=== PATIENT | female | born 1995 | race Caucasian/White ===

== ENCOUNTER 2020-02-05 22:05 | Emergency (ER) | payer BC ==
--- NOTE | 2020-02-05 22:31 | EDM.PDOC ---
ED HPI GENERAL MEDICAL PROBLEM - General Chief Complaint: ENT Problem Stated Complaint: PAIN BEHIND RIGHT EAR Time Seen by Provider: 02/05/20 22:19 - History of Present Illness INITIAL COMMENTS - FREE TEXT/NARRATIVE: History of present illness: [] She has pain in the right side of the postauricular mastoid area. It started this morning. It is constant. She has no injury. She has no fever. She has no systemic signs of illness. She has no sore throat or cough. The patient not diabetic. Review of systems: As per history of present illness and below otherwise all systems reviewed and negative. Past medical history: As per history of present illness and as reviewed below otherwise noncontributory. Surgical history: As per history of present illness and as reviewed below otherwise noncontributory. Social history: No reported history of drug or alcohol abuse. Family history: As per history of present illness and as reviewed below otherwise noncontributory. Physical exam: Constitutional - well developed, well-nourished and in no acute distress HEENT -she has tenderness directly over the mastoid process on the right. There is no redness swelling fluctuance or inflammation. The TM looks normal on that side. Normocephalic, no evidence of trauma - external nose and mouth normal - no mass in neck and no JVD - mucosae moist EYES - full EOM, PERRL, no icterus - no evidence of inflammation, injection, or drainage Respiratory - no respiratory distress, equal bilateral expansion Musculoskeletal no gross deformity of long bones or joints - no tenderness, swelling or edema Neurologic - Alert and oriented times four - CN II-XII grossly intact - motor sensory and coordination symmetrically normal Psychiatric - appropriate mood and affect with normal thought content Hematologic - No petechiae or purpura - mucosa appropriate color and sclera not pale - normal nail bed color and refill Integument - no rash or evidence of trauma - normal turgor Diagnostics: [] Therapeutics: [] Impression: [] Plan: [] Definitive disposition and diagnosis as appropriate pending reevaluation and review of above. behind right ear Pain Score (Numeric/FACES): 2 - Related Data Allergies Allergy/AdvReac Type Severity Reaction Status Date / Time cephalexin [From Keflex] Allergy Hives Verified 02/05/20 22:19 Penicillins Allergy Hives Verified 02/05/20 22:19 Sulfa (Sulfonamide Allergy Other Verified 02/05/20 22:19 Antibiotics) sulfamethoxazole Allergy Other Verified 02/05/20 22:19 [From Bactrim] trimethoprim [From Bactrim] Allergy Other Verified 02/05/20 22:19 Home Meds: Home Meds Azithromycin [Zithromax] 250 mg PO DAILY #6 tab 02/05/20 [Rx] Past Medical History HEENT History: Reports: None Cardiovascular History: Reports: None Respiratory History: Reports: None Gastrointestinal History: Reports: None Genitourinary History: Reports: None FREELANCE PATTERNMAKER History: Reports: None Musculoskeletal History: Reports: None Neurological History: Reports: None Psychiatric History: Reports: None Endocrine/Metabolic History: Reports: None Insulin Pump Model and Fitting Room Inspector: None Hematologic History: Reports: None Immunologic History: Reports: None Oncologic (Cancer) History: Reports: None Dermatologic History: Reports: None - Infectious Disease History Infectious Disease History: Reports: None - Past Surgical History Head Surgeries/Procedures: Reports: None Social & Family History - Family History Family Medical History: Noncontributory - Tobacco Use Smoking Status *Q: Never Smoker - Caffeine Use Caffeine Use: Reports: None - Recreational Drug Use Recreational Drug Use: No ED ROS GENERAL - Review of Systems Review Of Systems: Comprehensive ROS is negative, except as noted in HPI. ED EXAM, GENERAL - Physical Exam Exam: See Below Free Text/Narrative:: My physical exam as in the HPI Course - Vital Signs Last Recorded V/S: Last Vital Signs Temp 97.3 F 02/05/20 22:15 Pulse 78 02/05/20 22:15 Resp 18 02/05/20 22:15 BP 121/89 02/05/20 22:15 Pulse Ox 96 02/05/20 22:15 Departure - Departure Time of Disposition: 22:31 Disposition: Home, Self-Care 01 Condition: Good Clinical Impression: Mastoid pain - Discharge Information Prescriptions: Azithromycin [Zithromax] 250 mg PO DAILY #6 tab Instructions: Pain Without a Known Cause Referrals: Leatha Lopez NP [Primary Care Provider] - Additional Instructions: Because you are breast-feeding and reacted poorly to cephalexin I think azithromycin would be the proper drug if you develop redness warmth tenderness in the area where you are tender or fever. Otherwise try warm compresses or heat to the area and [id number] anti-inflammatory medicine such as naproxen or ibuprofen. Prescription was sent in case she develops no signs but if it gets worse despite the prescription you should return or see your doctor. [facility] - Primary Care [address] [place] [id number] [facility] [address] [place] [address] The following information is given to patients seen in the emergency department who are being discharged to home. This information is to outline your options for follow-up care. We provide all patients seen in our emergency department with a follow-up referral. The need for follow-up, as well as the timing and circumstances, are variable depending upon the specifics of your emergency department visit. If you don't have a primary care physician on staff, we will provide you with a referral. We always advise you to contact your personal physician following an emergency department visit to inform them of the circumstance of the visit and for follow-up with them and/or the need for any referrals to a consulting specialist. The emergency department will also refer you to a specialist when appropriate. This referral assures that you have the opportunity for follow-up care with a specialist. All of these measure are taken in an effort to provide you with optimal care, which includes your follow-up. Under all circumstances we always encourage you to contact your private physician who remains a resource for coordinating your care. When calling for follow-up care, please make the office aware that this follow-up is from your recent emergency room visit. If for any reason you are refused follow-up, please contact the [facility] Emergency Department at and asked to speak to the emergency department charge nurse. Sepsis Event Note (ED) - Evaluation Sepsis Screening Result: No Definite Risk - Focused Exam Vital Signs: Vital Signs Temp Pulse Resp BP Pulse Ox 02/05/20 22:15 97.3 F 78 18 121/89 96
== END 2020-02-05 22:40 | disposition home or self-care (01) ==
LOC: MW.ED 22:05
DX: H92.01 Otalgia, right ear (principal); Z88.1 Allergy status to other antibiotic agents; Z88.2 Allergy status to sulfonamides; Z88.0 Allergy status to penicillin
CPT/HCPCS: 99282

== ENCOUNTER 2020-04-24 21:38 | Emergency (ER) | payer BC ==
--- NOTE | 2020-04-24 22:28 | EDM.PDOC ---
ED HPI GENERAL MEDICAL PROBLEM - General Chief Complaint: ENT Problem Stated Complaint: EAR INFECTION Time Seen by Provider: 04/24/20 22:15 - History of Present Illness INITIAL COMMENTS - FREE TEXT/NARRATIVE: HISTORY AND PHYSICAL: History of present illness: Is a 24-year-old female who presents ER today secondary to pain to both ears for approximately 2 and half weeks. Patient reports that she saw her primary care physician and was started on a course of Zithromax and ciprofloxacin drops but reports that she still has having discomfort in her ears. Patient reports that she saw her doctor yesterday and was given a shot of steroids to see if that might help. Patient presents ER today secondary to pain and discomfort to her ears and feeling like its full and constantly having to pop her ear drum. Patient has any recent fevers, shakes, chills, nausea, vomiting, diarrhea, dysuria, frequency, urgency, chest pain, shortness of breath. Patient reports no recent plane rides or increased trauma to her ear. Patient reports she does not use any Q-tips inside her ear. Review of systems: As per history of present illness and below otherwise all systems reviewed and negative. Past medical history: As per history of present illness and as reviewed below otherwise noncontributory. Surgical history: As per history of present illness and as reviewed below otherwise noncontributory. Social history: No reported history of drug or alcohol abuse. Family history: As per history of present illness and as reviewed below otherwise noncontributory. Physical exam: Constitutional: Patient is oriented to person, place, and time. Appears well- developed and well-nourished. No distress. HEENT: Moist mucous membranes Head: Normocephalic and atraumatic Eyes: Right eye exhibits no discharge. Left eye exhibits no discharge. No scleral icterus Neck: Normal range of motion. No tracheal deviation present. Cardiovascular: Normal rate and regular rhythm. Pulmonary: Effort normal, no respiratory distress. Abdominal: No distention Musculoskeletal: Normal range of motion Neurologic: Alert and oriented to person, place and time. Skin: [place], warm and dry. Psychiatric: Normal mood and affect. Behavior is normal. Judgment and thought content normal. Nursing note and vital signs have been reviewed Patient's ER physical exam is significant for pristine appearing bilateral ear canals and eardrum. There is absolutely no evidence of infection that I am able to elicit. Patient has no mastoid bone tenderness. Patient has no drainage, erythema, erythema of the tympanic membrane. Patient has no tenderness to her teeth or gums. Patient has no pain at the TMJs bilaterally. Assessment and plan: This is a 24-year-old female presents ER today complaining of bilateral ear pain for 2 and half weeks. Patient exam is completely normal. No evidence of infection. I have encouraged patient to utilize ibuprofen and acetaminophen and to follow-up with her doctor for reevaluation of the pain persist. At this time I do not see anything that I can treat here in the ED. Reassessment at the time of disposition demonstrates that the patient is in no acute distress. The patient has remained stable throughout the entire ED visit and is without objective evidence for acute process requiring urgent intervention or hospitalization. The patient is stable for discharge, counseling is provided as documented above, discussed symptomatic treatment and specific conditions for return. I have spoken with the patient/caregiver and discussed todays findings, in addition to providing specific details for the plan of care. Questions are answered and there is agreement with the plan. Definitive disposition and diagnosis as appropriate pending reevaluation and review of above. bilat ears Pain Score (Numeric/FACES): 5 - Related Data Allergies Allergy/AdvReac Type Severity Reaction Status Date / Time cephalexin [From Keflex] Allergy Hives Verified 04/24/20 21:55 Penicillins Allergy Hives Verified 04/24/20 21:55 Sulfa (Sulfonamide Allergy Other Verified 04/24/20 21:55 Antibiotics) sulfamethoxazole Allergy Other Verified 04/24/20 21:55 [From Bactrim] trimethoprim [From Bactrim] Allergy Other Verified 04/24/20 21:55 Home Meds: Home Meds Azithromycin [Zithromax] 250 mg PO DAILY #6 tab 02/05/20 [Rx] Ciprofloxacin HCl/Dexameth [Ciproflox-Dexameth Otic Susp] 3 drop EARBOTH BID 04/24/20 [History] Past Medical History HEENT History: Reports: None Other HEENT History: wisdom teeth Cardiovascular History: Reports: None Respiratory History: Reports: None Gastrointestinal History: Reports: None Genitourinary History: Reports: None FOOD SAFETY AUDITOR History: Reports: None Musculoskeletal History: Reports: None Neurological History: Reports: None Psychiatric History: Reports: None Endocrine/Metabolic History: Reports: None Insulin Pump Model and Farmworker Diversified Crops: None Hematologic History: Reports: None Immunologic History: Reports: None Oncologic (Cancer) History: Reports: None Dermatologic History: Reports: None - Infectious Disease History Infectious Disease History: Reports: None - Past Surgical History Head Surgeries/Procedures: Reports: None Social & Family History - Family History Family Medical History: No Pertinent Family History - Caffeine Use Caffeine Use: Reports: None - Recreational Drug Use Recreational Drug Use: No ED ROS GENERAL - Review of Systems Review Of Systems: See Below ED EXAM, GENERAL - Physical Exam Exam: See Below Course - Vital Signs Last Recorded V/S: Last Vital Signs Temp 98.9 F 04/24/20 21:58 Pulse 109 H 04/24/20 21:58 Resp 18 04/24/20 21:58 BP 129/93 H 04/24/20 21:58 Pulse Ox 98 04/24/20 21:58 Departure - Departure Time of Disposition: 22:27 Disposition: Home, Self-Care 01 Condition: Good Clinical Impression: Otalgia, bilateral - Discharge Information Instructions: Earache, Adult Referrals: Leatha Lopez NP [Primary Care Provider] - Additional Instructions: Your seen and evaluated in the ER today secondary to pain in both ears. Your evaluation today is unremarkable with no evidence of infection in either your external ear canal or middle ear canal. Please take ibuprofen and Tylenol to as sist you with the pain. Please make an appointment to follow-up with your doctor this week for reevaluation. The following information is given to patients seen in the emergency department who are being discharged to home. This information is to outline your options for follow-up care. We provide all patients seen in our emergency department with a follow-up referral. The need for follow-up, as well as the timing and circumstances, are variable depending upon the specifics of your emergency department visit. If you don't have a primary care physician on staff, we will provide you with a referral. We always advise you to contact your personal physician following an emergency department visit to inform them of the circumstance of the visit and for follow-up with them and/or the need for any referrals to a consulting specialist. The emergency department will also refer you to a specialist when appropriate. This referral assures that you have the opportunity for follow-up care with a specialist. All of these measure are taken in an effort to provide you with optimal care, which includes your follow-up. Under all circumstances we always encourage you to contact your private physic jaiden who remains a resource for coordinating your care. When calling for follow- up care, please make the office aware that this follow-up is from your recent emergency room visit. If for any reason you are refused follow-up, please contact the [facility] Emergency Department at and asked to speak to the emergency department charge nurse. [facility] - Primary Care [address] [place] [address] [id number] [address] [address] Sepsis Event Note (ED) - Evaluation Sepsis Screening Result: No Definite Risk - Focused Exam Vital Signs: Vital Signs Temp Pulse Resp BP Pulse Ox 04/24/20 21:58 98.9 F 109 H 18 129/93 H 98
== END 2020-04-24 22:35 | disposition home or self-care (01) ==
LOC: MW.ED 21:38
DX: H92.03 Otalgia, bilateral (principal); Z88.1 Allergy status to other antibiotic agents; Z88.0 Allergy status to penicillin; Z88.2 Allergy status to sulfonamides
CPT/HCPCS: 99282

== ENCOUNTER 2020-06-14 21:52 | Emergency (ER) | payer BC ==
--- NOTE | 2020-06-14 22:39 | EDM.PDOC ---
ED HPI GENERAL MEDICAL PROBLEM - General Chief Complaint: Gastrointestinal Problem Stated Complaint: STOMACH PAIN Time Seen by Provider: 06/14/20 22:30 Source of Information: Reports: Patient History Limitations: Reports: No Limitations - History of Present Illness INITIAL COMMENTS - FREE TEXT/NARRATIVE: Is a 24-year-old female who presents today for black-colored stool. Patient that she has been treated for C. difficile currently and is on her 11-day of vancomycin. Patient that she had a bowel move today and was very dark in color and became concerned. Patient denies any fatigue weakness nausea vomiting abdominal pain. Patient has not had GI bleeding before and patents had colonoscopy that showed no polyps and essentially negative. - Related Data Allergies Allergy/AdvReac Type Severity Reaction Status Date / Time cephalexin [From Keflex] Allergy Hives Verified 06/14/20 23:00 Penicillins Allergy Hives Verified 06/14/20 23:00 Sulfa (Sulfonamide Allergy Other Verified 06/14/20 23:00 Antibiotics) sulfamethoxazole Allergy Other Verified 06/14/20 23:00 [From Bactrim] trimethoprim [From Bactrim] Allergy Other Verified 06/14/20 23:00 Home Meds: Home Meds Vancomycin [Vancocin 125 MG Capsule] 125 mg PO Q6HR 06/14/20 [History] Past Medical History HEENT History: Reports: None Other HEENT History: wisdom teeth Cardiovascular History: Reports: None Respiratory History: Reports: None Gastrointestinal History: Reports: None Genitourinary History: Reports: None PRESSER FIRST History: Reports: None Musculoskeletal History: Reports: None Neurological History: Reports: None Psychiatric History: Reports: None Endocrine/Metabolic History: Reports: None Insulin Pump Model and Radio Frequency Design Engineer: None Hematologic History: Reports: None Immunologic History: Reports: None Oncologic (Cancer) History: Reports: None Dermatologic History: Reports: None - Infectious Disease History Infectious Disease History: Reports: None - Past Surgical History Head Surgeries/Procedures: Reports: None Social & Family History - Family History Family Medical History: No Pertinent Family History - Caffeine Use Caffeine Use: Reports: None ED ROS GENERAL - Review of Systems Review Of Systems: Comprehensive ROS is negative, except as noted in HPI. ED EXAM, GENERAL - Physical Exam Exam: See Below Exam Limited By: No Limitations General Appearance: Alert, WD/WN, No Apparent Distress Respiratory/Chest: No Respiratory Distress, Lungs Clear, Normal Breath Sounds Cardiovascular: Normal Peripheral Pulses, Regular Rate, Rhythm GI/Abdominal: Normal Bowel Sounds, Soft, Non-Tender Extremities: Normal Inspection, Normal Range of Motion Neurological: Alert, Oriented Course - Vital Signs Last Recorded V/S: Last Vital Signs Temp 97.5 F 06/14/20 22:05 Pulse 112 H 06/14/20 22:05 Resp 18 06/14/20 22:05 BP 143/98 H 06/14/20 22:05 Pulse Ox 96 06/14/20 22:05 - Orders/Labs/Meds Orders: Active Orders 24 hr Category Date Time Status Guaiac [OCCULT BLOOD DIAGNOSTIC] [OP] Stat Lab 06/14/20 22:37 Ordered Labs: Laboratory Tests 06/14/20 06/14/20 06/14/20 Range/Units 22:53 22:53 22:53 WBC 8.66 (4.0-11.0) K/uL RBC 4.54 (4.30-5.90) M/uL Hgb 13.7 (12.0-16.0) g/dL Hct 41.2 (36.0-46.0) % MCV 90.7 (80.0-98.0) fL MCH 30.2 (27.0-32.0) pg MCHC 33.3 (31.0-37.0) g/dL RDW Std Deviation 41.8 (28.0-62.0) fl RDW Coeff of Camilla 13 (11.0-15.0) % Plt Count 356 (150-400) K/uL MPV 9.30 (7.40-12.00) fL Neut % (Auto) 55.7 (48.0-80.0) % Lymph % (Auto) 31.9 (16.0-40.0) % [place] % (Auto) 9.1 (0.0-15.0) % Eos % (Auto) 2.7 (0.0-7.0) % Baso % (Auto) 0.6 (0.0-1.5) % Neut # (Auto) 4.8 (1.4-5.7) K/uL Lymph # (Auto) 2.8 H (0.6-2.4) K/uL [place] # (Auto) 0.8 (0.0-0.8) K/uL Eos # (Auto) 0.2 (0.0-0.7) K/uL Baso # (Auto) 0.1 (0.0-0.1) K/uL Nucleated RBC % 0.0 /100WBC Nucleated RBCs # 0 K/uL INR 0.97 APTT 22.7 (18.6-31.3) SEC Sodium 140 (136-145) mmol/L Potassium 3.8 (3.5-5.1) mmol/L Chloride 103 (98-107) mmol/L Carbon Dioxide 25.7 (21.0-32.0) mmol/L BUN 13 (7.0-18.0) mg/dL Creatinine 0.8 (0.6-1.0) mg/dL Est Cr Clr Drug Dosing 77.22 mL/min Estimated GFR (MDRD) > 60.0 ml/min Glucose 110 H (74-106) mg/dL Calcium 9.5 (8.5-10.1) mg/dL Total Bilirubin 0.2 (0.2-1.0) mg/dL AST 19 (15-37) IU/L ALT 19 (14-63) IU/L Alkaline Phosphatase 70 (46-116) U/L Total Protein 8.4 H (6.4-8.2) g/dL Albumin 4.1 (3.4-5.0) g/dL Globulin 4.3 H (2.6-4.0) g/dL Albumin/Globulin Ratio 1.0 (0.9-1.6) - Re-Assessments/Exams Free Text/Narrative Re-Assessment/Exam: 06/14/20 23:48 And hemoglobin is stable. Patient has some dark-colored stool that was guaiac positive. Patient vital signs also stable. Patient has C. difficile and second vague likely the source of the dark-colored stool. Since patient hemoglobin is stable and her vital signs been stable will have patient follow-up with general surgery tomorrow morning. Departure - Departure Time of Disposition: 23:48 Disposition: Home, Self-Care 01 Condition: Good Clinical Impression: Black tarry stools - Discharge Information *PRESCRIPTION DRUG MONITORING PROGRAM REVIEWED*: Not Applicable *COPY OF PRESCRIPTION DRUG MONITORING REPORT IN PATIENT LATRICE: Not Applicable Instructions: Gastrointestinal Bleeding, [id number] Referrals: Leatha Lopez NP [Primary Care Provider] - Forms: ED Department Discharge Additional Instructions: The following information is given to patients seen in the emergency department who are being discharged to home. This information is to outline your options for follow-up care. We provide all patients seen in our emergency department with a follow-up referral. The need for follow-up, as well as the timing and circumstances, are variable depending upon the specifics of your emergency department visit. If you don't have a primary care physician on staff, we will provide you with a referral. We always advise you to contact your personal physician following an emergency department visit to inform them of the circumstance of the visit and for follow-up with them and/or the need for any referrals to a consulting specialist. The emergency department will also refer you to a specialist when appropriate. This referral assures that you have the opportunity for follow-up care with a specialist. All of these measure are taken in an effort to provide you with optimal care, which includes your follow-up. Under all circumstances we always encourage you to contact your private physician who remains a resource for coordinating your care. When calling for follow-up care, please make the office aware that this follow-up is from your recent emergency room visit. If for any reason you are refused follow-up, please contact the [facility] Emergency Department at and asked to speak to the emergency department charge nurse. Please follow up with your primary care physician. If you do not have a primary care physician, see below: [facility] - General Surgery Professional [address], [address] [place] [address] Please follow-up above with general surgery this week. Your stool is dark in color could be related to a possible bleed in your bowels if you start having plate red color stool becoming weak tired or pale please return to the ED immediately otherwise continue to follow-up with general surgery. Sepsis Event Note (ED) - Focused Exam Vital Signs: Vital Signs Temp Pulse Resp BP Pulse Ox 06/14/20 22:05 97.5 F 112 H 18 143/98 H 96 - My Orders Last 24 Hours: My Active Orders 06/14/20 22:37 Guaiac [OCCULT BLOOD DIAGNOSTIC] [OP] Stat - Assessment/Plan Last 24 Hours: My Active Orders 06/14/20 22:37 Guaiac [OCCULT BLOOD DIAGNOSTIC] [OP] Stat Assessment:: Patient is a 24-year-old female presents today for black-colored stool. Will get CBC and Guaiac to make sure patient not having a GI bleed.
[2020-06-14 23:20] LABS: BLOOD UREA NITROGEN,BUN 13 mg/dL (7.0-18.0); CARBON DIOXIDE,CO2 25.7 mmol/L (21.0-32.0); CHLORIDE,CL 103 mmol/L (98-107); GLUCOSE RANDOM 110 mg/dL (74-106); POTASSIUM,K 3.8 mmol/L (3.5-5.1); SODIUM,NA 140 mmol/L (136-145)
== END 2020-06-15 00:04 | disposition home or self-care (01) ==
LOC: MW.ED 21:52
DX: R19.5 Other fecal abnormalities (principal); Z88.1 Allergy status to other antibiotic agents; Z88.0 Allergy status to penicillin; Z88.2 Allergy status to sulfonamides
CPT/HCPCS: 36415; 80053; 85025; 85610; 85730; 99282; 99283

== ENCOUNTER 2020-06-30 20:17 | Emergency (ER) | payer BC ==
--- NOTE | 2020-06-30 20:52 | EDM.PDOC ---
ED HPI GENERAL MEDICAL PROBLEM - General Chief Complaint: General Stated Complaint: BOTH LEG AND HANDS SWOLLEN Time Seen by Provider: 06/30/20 20:29 Source of Information: Reports: Patient History Limitations: Reports: No Limitations - History of Present Illness INITIAL COMMENTS - FREE TEXT/NARRATIVE: HISTORY AND PHYSICAL: History of present illness: Patient is a 24-year-old female who presents to the emergency room with complaints of distal extremity edema. She states a few days ago she noticed that her hands and feet were swollen and initially she thought it was due to a salty pretzels she had eaten. She states she has noticed intermittent swelling of her distal extremities in the past but typically resolves on its own. She is also concerned as she has clammy/"sweaty" palms bilaterally. She recently drove back to [place] from [place], has been sitting for long periods of time. Patient denies any fever, chills, headache, change in vision, syncope or near syncope. Denies any chest pain, back pain, shortness of breath or cough. Denies any abdominal pain, nausea, vomiting, diarrhea, constipation or dysuria. Has not noted any blood in urine or stool. Patient has been eating and drinking appropriately. Review of systems: As per history of present illness and below otherwise all systems reviewed and negative. Past medical history: As per history of present illness and as reviewed below otherwise noncontributory. Surgical history: As per history of present illness and as reviewed below otherwise noncontributory. Social history: See social history for further information Family history: As per history of present illness and as reviewed below otherwise noncontributory. Physical exam: General: Well developed and well nourished 24-year-old female. Alert and orientated x 3. Nontoxic in appearance and in no acute distress. Vital signs are stable and have been reviewed by me. Nursing notes were reviewed. HEENT: Atraumatic, normocephalic, pupils equal and reactive bilaterally, negative for conjunctival pallor or scleral icterus, mucous membranes moist, TMs normal bilaterally, throat clear, neck supple, nontender, trachea midline. No drooling or trismus noted. No meningeal signs. No hot potato voice noted. Lungs: Clear to auscultation bilaterally. No wheezes, rales, or rhonchi. Chest nontender. Normal work of breathing, no accessory muscles used. Heart: S1S2, regular rate and rhythm without overt murmur, gallops, or rubs. No JVD. No peripheral edema Abdomen: Soft, nondistended, nontender. Normoactive bowel sounds. Negative for masses or costovertebral tenderness. Skin: Intact, warm, dry. No lesions or rashes noted. Hematologic: No petechiae or purpra. Mucosa appropriate color and normal nail bed color and refill. Extremities: Atraumatic, moves all extremities per self without difficulty or deficits, negative for cords or calf pain. Trace edema to bilateral ankles/feet. Strong pedal and pretibial pulses. Neurovascular unremarkable. Neuro: Awake, alert, oriented. Cranial nerves II through XII unremarkable. Cerebellum unremarkable. Motor and sensory unremarkable throughout. Exam nonfocal. Psychiatric: Mood and affect are appropriate. Normal thought process. Answering questions appropriately. Notes: *This patient was seen and evaluated during the 2019 SARS-CoV-2 novel coronavirus pandemic period. Community viral transmission is ongoing at time of this encounter and the emergency department is operating under pandemic response procedures. Patient states she stopped taking her control a month or 2 ago due to other medications she had been taking (states she was just taking too many). With her pulse being slightly elevated and recent long travel I will do basic lab, D.dimer (low Wells Score) work along with a urine . Chest x-ray is unremarkable. EKG shows no significant findings, no concern for STEMI. Labs are unremarkable. VSS. I have talked with the patient about today's findings, in addition to providing specific details for plan of care. Reassessment at the time of disposition demonstrates that the patient is in no acute distress. The patient is stable for discharge, counseling was provided and we discussed in great detail signs and symptoms that would prompt them to return to the Emergency Department. Medication, follow up and supportive care measures were reviewed and discussed. Voices understanding and is agreeable to plan of care. Denies any further questions or concerns at this time. Diagnostics: CBC, CMP, UA, HCGU, CXR, D.Dimer Therapeutics: None Prescription: None Impression: Edema, mild Plan: 1. Your work-up today (labs, EKG, chest x-ray) are all within normal limits. Increase your water intake and decrease sodium (processed foods, add salt, etc..) 2. You can alternate Tylenol and ibuprofen as needed for pain and fever management. 3. We encourage you to follow up with your primary care provider and/or recommended specialist in the next few days for re-evaluation and further care/management. 4. If your symptoms should worsen, new symptoms develop or any of the signs and symptoms we discussed should arise please return to the emergency room or call 911 (if needed). Definitive disposition and diagnosis as appropriate pending reevaluation and review of above. - Related Data Allergies Allergy/AdvReac Type Severity Reaction Status Date / Time cephalexin [From Keflex] Allergy Hives Verified 06/30/20 20:24 Penicillins Allergy Hives Verified 06/30/20 20:24 Sulfa (Sulfonamide Allergy Tachycardia Verified 06/30/20 20:24 Antibiotics) sulfamethoxazole Allergy Other Verified 06/30/20 20:24 [From Bactrim] trimethoprim [From Bactrim] Allergy Other Verified 06/30/20 20:24 Home Meds: Home Meds Vancomycin [Vancocin 125 MG Capsule] 125 mg PO DAILY 06/14/20 [History] Past Medical History HEENT History: Reports: None Other HEENT History: wisdom teeth, ear infection Cardiovascular History: Reports: None Respiratory History: Reports: None Gastrointestinal History: Reports: None Other Gastrointestinal History: c-diff Genitourinary History: Reports: None PRESS READER History: Reports: Musculoskeletal History: Reports: None Neurological History: Reports: None Psychiatric History: Reports: None Endocrine/Metabolic History: Reports: None 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 ED EXAM, GENERAL - Physical Exam Exam: See Below (See dictation) Course - Vital Signs Last Recorded V/S: Last Vital Signs Temp 98.0 F 06/30/20 20:25 Pulse 116 H 06/30/20 20:25 Resp 18 02/19/21 20:25 BP 148/83 H 06/30/20 20:25 Pulse Ox 100 06/30/20 20:25 - Orders/Labs/Meds Orders: Active Orders 24 hr Category Date Time Status EKG Documentation Completion [RC] STAT Care 06/30/20 20:36 Active Labs: Laboratory Tests 06/30/20 06/30/20 06/30/20 Range/Units 20:46 20:46 21:05 WBC 9.73 (4.0-11.0) K/uL RBC 4.52 (4.30-5.90) M/uL Hgb 13.8 (12.0-16.0) g/dL Hct 40.6 (36.0-46.0) % MCV 89.8 (80.0-98.0) fL MCH 30.5 (27.0-32.0) pg MCHC 34.0 (31.0-37.0) g/dL RDW Std Deviation 41.7 (28.0-62.0) fl RDW Coeff of Camilla 13 (11.0-15.0) % Plt Count 356 (150-400) K/uL MPV 9.60 (7.40-12.00) fL Neut % (Auto) 52.7 (48.0-80.0) % Lymph % (Auto) 34.4 (16.0-40.0) % [place] % (Auto) 7.8 (0.0-15.0) % Eos % (Auto) 4.7 (0.0-7.0) % Baso % (Auto) 0.4 (0.0-1.5) % Neut # (Auto) 5.1 (1.4-5.7) K/uL Lymph # (Auto) 3.4 H (0.6-2.4) K/uL [place] # (Auto) 0.8 (0.0-0.8) K/uL Eos # (Auto) 0.5 (0.0-0.7) K/uL Baso # (Auto) 0.0 (0.0-0.1) K/uL Nucleated RBC % 0.0 /100WBC Nucleated RBCs # 0 K/uL D-Dimer, Quantitative (0.0-0.50) mg/L FEU Sodium (136-145) mmol/L Potassium (3.5-5.1) mmol/L Chloride (98-107) mmol/L Carbon Dioxide (21.0-32.0) mmol/L BUN (7.0-18.0) mg/dL Creatinine (0.6-1.0) mg/dL Est Cr Clr Drug Dosing mL/min Estimated GFR (MDRD) ml/min Glucose (74-106) mg/dL Calcium (8.5-10.1) mg/dL Total Bilirubin (0.2-1.0) mg/dL AST (15-37) IU/L ALT (14-63) IU/L Alkaline Phosphatase (46-116) U/L Total Protein (6.4-8.2) g/dL Albumin (3.4-5.0) g/dL Globulin (2.6-4.0) g/dL Albumin/Globulin Ratio (0.9-1.6) Urine Color YELLOW Urine Appearance CLEAR Urine pH 6.0 (5.0-8.0) Ur Specific [place] 1.010 (1.001-1.035) Urine Protein NEGATIVE (NEGATIVE) mg/dL Urine Glucose (UA) NEGATIVE (NEGATIVE) mg/dL Urine Ketones NEGATIVE (NEGATIVE) mg/dL Urine Occult Blood NEGATIVE (NEGATIVE) Urine Nitrite NEGATIVE (NEGATIVE) Urine Bilirubin NEGATIVE (NEGATIVE) Urine Urobilinogen 0.2 (<2.0) EU/dL Ur Leukocyte Esterase NEGATIVE (NEGATIVE) Urine HCG, Qual NEGATIVE (NEGATIVE) 06/30/20 06/30/20 Range/Units 21:05 21:05 WBC (4.0-11.0) K/uL RBC (4.30-5.90) M/uL Hgb (12.0-16.0) g/dL Hct (36.0-46.0) % MCV (80.0-98.0) fL MCH (27.0-32.0) pg MCHC (31.0-37.0) g/dL RDW Std Deviation (28.0-62.0) fl RDW Coeff of Camilla (11.0-15.0) % Plt Count (150-400) K/uL MPV (7.40-12.00) fL Neut % (Auto) (48.0-80.0) % Lymph % (Auto) (16.0-40.0) % [place] % (Auto) (0.0-15.0) % Eos % (Auto) (0.0-7.0) % Baso % (Auto) (0.0-1.5) % Neut # (Auto) (1.4-5.7) K/uL Lymph # (Auto) (0.6-2.4) K/uL [place] # (Auto) (0.0-0.8) K/uL Eos # (Auto) (0.0-0.7) K/uL Baso # (Auto) (0.0-0.1) K/uL Nucleated RBC % /100WBC Nucleated RBCs # K/uL D-Dimer, Quantitative 0.41 (0.0-0.50) mg/L FEU Sodium 138 (136-145) mmol/L Potassium 3.9 (3.5-5.1) mmol/L Chloride 100 (98-107) mmol/L Carbon Dioxide 26.3 (21.0-32.0) mmol/L BUN 12 (7.0-18.0) mg/dL Creatinine 0.7 (0.6-1.0) mg/dL Est Cr Clr Drug Dosing 105.57 mL/min Estimated GFR (MDRD) > 60.0 ml/min Glucose 104 (74-106) mg/dL Calcium 9.1 (8.5-10.1) mg/dL Total Bilirubin 0.2 (0.2-1.0) mg/dL AST 22 (15-37) IU/L ALT 34 (14-63) IU/L Alkaline Phosphatase 69 (46-116) U/L Total Protein 8.2 (6.4-8.2) g/dL Albumin 4.0 (3.4-5.0) g/dL Globulin 4.2 H (2.6-4.0) g/dL Albumin/Globulin Ratio 1.0 (0.9-1.6) Urine Color Urine Appearance Urine pH (5.0-8.0) Ur Specific [place] (1.001-1.035) Urine Protein (NEGATIVE) mg/dL Urine Glucose (UA) (NEGATIVE) mg/dL Urine Ketones (NEGATIVE) mg/dL Urine Occult Blood (NEGATIVE) Urine Nitrite (NEGATIVE) Urine Bilirubin (NEGATIVE) Urine Urobilinogen (<2.0) EU/dL Ur Leukocyte Esterase (NEGATIVE) Urine HCG, Qual (NEGATIVE) Departure - Departure Time of Disposition: 21:35 Disposition: Home, Self-Care 01 Clinical Impression: Mild ankle edema - Discharge Information Instructions: Edema, [id number] Referrals: Leatha Lopez NP [Primary Care Provider] - Forms: ED Department Discharge Additional Instructions: The following information is given to patients seen in the emergency department who are being discharged to home. This information is to outline your options for follow-up care. We provide all patients seen in our emergency department with a follow-up referral. The need for follow-up, as well as the timing and circumstances, are variable depending upon the specifics of your emergency department visit. If you don't have a primary care physician on staff, we will provide you with a referral. We always advise you to contact your personal physician following an emergency department visit to inform them of the circumstance of the visit and for follow-up with them and/or the need for any referrals to a consulting specialist. The emergency department will also refer you to a specialist when appropriate. This referral assures that you have the opportunity for follow-up care with a specialist. All of these measure are taken in an effort to provide you with optimal care, which includes your follow-up. Under all circumstances we always encourage you to contact your private physician who remains a resource for coordinating your care. When calling for follow-up care, please make the office aware that this follow-up is from your recent emergency room visit. If for any reason you are refused follow-up, please contact the [facility] Emergency Department at and asked to speak to the emergency department charge nurse. [facility] [address] [place] [id number] [address] Thank you for choosing the [facility] emergency department in [place] for your medical needs today. It was a pleasure caring for you. Today you were seen in the emergency department for edema. 1. Your work-up today (labs, EKG, chest x-ray) are all within normal limits. Increase your water intake and decrease sodium (processed foods, add salt, etc..) 2. You can alternate Tylenol and ibuprofen as needed for pain and fever management. 3. We encourage you to follow up with your primary care provider and/or recommended specialist in the next few days for re-evaluation and further care/management. 4. If your symptoms should worsen, new symptoms develop or any of the signs and symptoms we discussed should arise please return to the emergency room or call 911 (if needed). Sepsis Event Note (ED) - Evaluation Sepsis Screening Result: No Definite Risk - Focused Exam Vital Signs: Vital Signs Temp Pulse Resp BP Pulse Ox 06/30/20 20:25 98.0 F 116 H 18 148/83 H 100 - My Orders Last 24 Hours: My Active Orders 06/30/20 20:36 EKG Documentation Completion [RC] STAT - Assessment/Plan Last 24 Hours: My Active Orders 06/30/20 20:36 EKG Documentation Completion [RC] STAT
--- NOTE | 2020-06-30 21:20 | CR ---
Indication: Edema Technique: Chest 1 view Comparison: None Findings/Impression: Cardiovascular and mediastinum: Heart size and vasculature are normal in caliber and appearance. Mediastinum is within normal limits. Lungs and pleural space: Lungs are clear. No sign of infiltrate or mass. No sign of pleural effusion. No pneumothorax. Bones and soft tissues: No significant findings. Dictated by Yessenia Webb MD @ Jun 30 2020 9:17PM Signed by Dr. Yessenia Webb @ Jun 30 2020 9:19PM
[2020-06-30 21:30] LABS: BLOOD UREA NITROGEN,BUN 12 mg/dL (7.0-18.0); CARBON DIOXIDE,CO2 26.3 mmol/L (21.0-32.0); CHLORIDE,CL 100 mmol/L (98-107); GLUCOSE RANDOM 104 mg/dL (74-106); POTASSIUM,K 3.9 mmol/L (3.5-5.1); SODIUM,NA 138 mmol/L (136-145)
--- NOTE | 2020-06-30 23:11 | PCM.SN.2 ---
- Free Text/Narrative Note: EKG: As interpreted by ER physician: Brian: Nonspecific ST-T wave abnormalities Normal axis No evidence of ST elevation HI Normal sinus rhythm heart rate of 85
== END 2020-06-30 21:40 | disposition home or self-care (01) ==
LOC: MW.ED 20:17
DX: R60.0 Localized edema (principal); Z88.1 Allergy status to other antibiotic agents; Z88.0 Allergy status to penicillin; Z88.2 Allergy status to sulfonamides
CPT/HCPCS: 36415; 71045; 71045-26; 80053; 81003; 81025; 85025; 85379; 93005; 93010; 99283; 99284-25

== ENCOUNTER 2020-07-12 06:35 | Day surgery (SDC) | payer BC ==
[~2020-07-12 06:35] MED LIST: Lactated Ringers 1,000 ML IV SCH
[2020-07-12] MEDS ORDERED: Propofol 200 MG/20 ML SDV ONE (07:18)
[2020-07-12] MEDS ORDERED: Midazolam 1 MG/ML 2 ML SDV ONE (07:18)
[2020-07-12] MEDS ORDERED: Lidocaine 2% 5 ML SDV ONE (07:20)
[2020-07-12] MEDS ORDERED: Glycopyrrolate 0.2 MG/ML SDV ONE (07:20)
--- NOTE | 2020-07-12 07:59 | PCM.PREANE ---
Preanesthetic Assessment - Anesthesia/Transfusion/Family Hx Anesthesia History: Prior Anesthesia Without Reaction Family History of Anesthesia Reaction: No Transfusion History: No Prior Transfusion(s) Intubation History: Unknown - Review of Systems General: No Symptoms Pulmonary: No Symptoms Cardiovascular: No Symptoms Gastrointestinal: Melena Neurological: No Symptoms Other: Reports: None - Physical Assessment Vital Signs: Last Vital Signs Temp 36.9 C 07/12/20 07:36 Pulse 109 H 07/12/20 07:36 Resp 16 07/12/20 07:36 BP 136/87 07/12/20 07:36 Pulse Ox 100 07/12/20 07:36 Height: 4 ft 10 in Weight: 54.431 kg ASA Class: 2 Mental Status: Alert & Oriented x3 Airway Class: Mallampati = 1 Dentition: Reports: Normal Dentition Thyro-Mental Finger Breadths: 3 Mouth Opening Finger Breadths: 3 ROM/Head Extension: Full Lungs: Clear to Auscultation, Normal Respiratory Effort Cardiovascular: Regular Rate, Regular Rhythm - Lab Values: Laboratory Last Values Urine HCG, Qual NEGATIVE (NEGATIVE) 07/12/20 06:40 SARS-CoV-2 RNA (MARY) NEGATIVE (NEGATIVE) 07/12/20 06:40 - Allergies Allergies/Adverse Reactions: Allergies Allergy/AdvReac Type Severity Reaction Status Date / Time amoxicillin Allergy c-diff Verified 07/06/20 09:04 cephalexin [From Keflex] Allergy Hives Verified 07/06/20 08:28 clindamycin Allergy c-diff Verified 07/06/20 09:05 Penicillins Allergy Hives Verified 07/06/20 08:28 Sulfa (Sulfonamide Allergy Tachycardia Verified 07/06/20 08:28 Antibiotics) sulfamethoxazole Allergy Tachycardia Verified 07/06/20 08:28 [From Bactrim] trimethoprim [From Bactrim] Allergy Tachycardia Verified 07/06/20 08:28 - Blood Blood Available: No - Anesthesia Plan Pre-Op Medication Ordered: None - Acknowledgements Anesthesia Type Planned: MAC Pt an Appropriate Candidate for the Planned Anesthesia: Yes Alternatives and Risks of Anesthesia Discussed w Pt/Guardian: Yes Pt/Guardian Understands and Agrees with Anesthesia Plan: Yes PreAnesthesia Questionnaire HEENT History: Reports: None Other HEENT History: wisdom teeth, ear infection Cardiovascular History: Reports: None Respiratory History: Reports: None Other Gastrointestinal History: c-diff. 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: Musculoskeletal History: Reports: Back Pain, Chronic, Neck Pain, Chronic Neurological History: Reports: None Psychiatric History: Reports: None Endocrine/Metabolic History: Reports: None Hematologic History: Reports: None Immunologic History: Reports: None Oncologic (Cancer) History: Reports: None Dermatologic History: Reports: None - Infectious Disease History Infectious Disease History: Reports: C-Difficile - Past Surgical History Head Surgeries/Procedures: Reports: None HEENT Surgical History: Reports: Oral Surgery Cardiovascular Surgical History: Reports: None Respiratory Surgical History: Reports: None GI Surgical History: Reports: Colonoscopy (), EGD () Female Surgical History: Reports: None Endocrine Surgical History: Reports: None Neurological Surgical History: Reports: None Musculoskeletal Surgical History: Reports: None Oncologic Surgical History: Reports: None Dermatological Surgical History: Reports: None - SUBSTANCE USE Tobacco Use Status *Q: Never Tobacco User - HOME MEDS Home Medications: Home Meds Vancomycin [Vancocin 125 MG Capsule] 125 mg PO ASDIRECTED 06/14/20 [History] EPINEPHrine [Epipen] 1 injection SUBCUT ASDIRECTED PRN 07/06/20 [History] Ergocalciferol (Vitamin D2) [Vitamin D2] 50,000 units PO WEEKLY 07/06/20 [History] Fexofenadine [Jenny] 1 tab PO BID 07/06/20 [History] Fluticasone Propionate [Flonase Allergy Relief] 1 spray NASBOTH DAILY PRN 07/06/20 [History] L.acidoph,Paracasei, B.lactis [Probiotic] 3 tab PO BEDTIME 07/06/20 [History] Triamcinolone Acetonide [Triamcinolone Acetonide 0.1% Crm] 1 applic TOP ASDIRECTED PRN 07/06/20 [History] norethindrone-e.estradioL-iron [Lo Loestrin Fe 1-10] 1 tab PO DAILY 07/06/20 [History] - CURRENT (IN HOUSE) MEDS Current Meds: Current Medications Lactated Ringer's (Ringers, Lactated) 1,000 mls @ 125 mls/hr IV ASDIRECTED DAY Last Admin: 07/12/20 07:45 Dose: 125 mls/hr Documented by: Discontinued Medications Glycopyrrolate (Robinul) Confirm Administered Dose 0.2 mg .ROUTE .STK-MED ONE Stop: 07/12/20 07:21 Lidocaine (Xylocaine-Mpf 2%) Confirm Administered Dose 5 ml .ROUTE .STK-MED ONE Stop: 07/12/20 07:21 Midazolam HCl (Versed 1 Mg/Ml) Confirm Administered Dose 2 mg .ROUTE .STK-MED ONE Stop: 07/12/20 07:19 Propofol (Diprivan 20 Ml) Confirm Administered Dose 600 mg .ROUTE .STK-MED ONE Stop: 07/12/20 07:19
--- NOTE | 2020-07-12 08:54 | PCM.OPNOTE ---
- General Post-Op/Procedure Note Date of Surgery/Procedure: 07/12/20 Operative Procedure(s): egd w bx. colonoscopy w bx Findings: see [id number] Pre Op Diagnosis: recurrent colitis and abd pain Post-Op Diagnosis: Same Anesthesia Technique: Moderate Sedation Primary Surgeon: Deep Ornelas Pathology: egd bx colon random bx Complications: None Condition: Good
--- NOTE | 2020-07-12 09:15 | PCM.POSTAN ---
POST ANESTHESIA ASSESSMENT - MENTAL STATUS Mental Status: Alert, Oriented - VITAL SIGNS Vital Signs: Last Vital Signs Temp 36.9 C 07/12/20 07:36 Pulse 102 H 07/12/20 09:07 Resp 13 07/12/20 09:07 BP 87/49 L 07/12/20 09:02 Pulse Ox 98 07/12/20 09:07 - RESPIRATORY Respiratory Status: Respiratory Rate WNL, Airway Patent, O2 Saturation Stable - CARDIOVASCULAR CV Status: Pulse Rate WNL, Blood Pressure Stable - GASTROINTESTINAL GI Status: No Symptoms - PAIN Pain Score: 0 - POST OP HYDRATION Hydration Status: Adequate & Stable - OBSERVATIONS Free Text/Narrative:: No anesthesia problems
--- NOTE | 2020-07-12 09:59 | OR ---
SURGEON: Deep Ornelas MD DATE OF PROCEDURE: 07/12/2020 PREOPERATIVE DIAGNOSES: Recurrent colitis and abdominal pain. POSTOPERATIVE DIAGNOSES: 1. Esophagogastroduodenoscopy diagnosis is acid reflux. 2. Colonoscopy diagnosis is hemorrhoid. PROCEDURES PERFORMED: Esophagogastroduodenoscopy with biopsy and colonoscopy with random biopsy. DESCRIPTION OF PROCEDURE: EGD: The patient was taken to the endoscopy room, and with the PLASTICS REPAIRER, Diprivan was administered. A well-lubricated EGD scope was gently inserted through the oropharynx, down the esophagus, passing through the gastroesophageal junction, into the stomach. The mucosa was examined upon the passage. Any etiology will be noted. Once in the stomach, we continued to advance to the distal antrum, passed through the pylorus into the second portion of the duodenum. Again, the mucosa was examined for any abnormality and etiology. The scope was then retrieved back to the stomach and then retroflexed to look at the fundus of the stomach. If a biopsy was indicated, we will biopsy the antrum, body, and gastroesophageal junction. The air will be sucked out while the scope is retrieved to reduce the patient's discomfort. The patient tolerated the procedure well. There were no intraoperative complications. Dr. Ornelas was present through the whole procedure. Prior to surgery, a time-out had been called, the patient identified, procedure identified and antibiotic administered. The patient was taken to the endoscopy room. A time out was called, patient identified, and procedure identified. Diprivan was then administrated. Patient went from awake to sleep, hearing doctor talking or door closing is normal. Perineum inspection and digital examination were then performed. A well- lubricated colonoscope was gently inserted through the rectum, advanced past the rectosigmoid junction, the descending colon, splenic flexure, transverse colon, hepatic flexure, ascending colon, arrived to the cecum. Cecum was identified as dictated in the finding. Then the scope was carefully withdrawn while attention was paid to the mucosal surface for any abnormality. Air will be sucked out during the scope withdrawal. At the rectum, retroflexed to examine any rectal diseases, fistula or hemorrhoids. During mucosal examination, abnormality or polyp was noted; picture taken and biopsy performed. Patient tolerated procedure well. There were no intraoperative complications, and Dr. Ornelas was present throughout the whole procedure. FINDINGS: EGD findings: 1. The patient is easily sedated with PLASTICS REPAIRER and Diprivan, the patient is soundly snoring. 2. Oropharynx and proximal esophagus are free of disease, stricture, or inflammation. Proximal esophagus at GE junction at 40 shows very mild salmon-colored change, suggestive of acid reflux, mild though. Stomach rugae are normal in appearance. There was some bile observed and no food particle, no blood, no ulcer. Antrum looks fine. Duodenum looks grossly normal. Retroflexed look at the fundus of stomach, there is no hiatal hernia. Biopsy done at antrum, body, GE junction at 40 and sucked out the gas while scope coming out. During the whole study, there is no food particle, blood, or ulcer observed. Colonoscopy findings: 1. The patient is easily sedated with PLASTICS REPAIRER and Diprivan, the patient is soundly snoring. 2. Bowel prep is average to above average, very little liquid stool, no semi- formed stool, no stool ball. 3. Colon is very straightforward. Cecum indicated by ileocecal fold, one-to- one indentation, appendiceal orifice. ScopeGuide is pointing south. Mucosa examined upon scope pulling out with some irrigation. The patient does not have diverticulosis, polyp, mass, growth, inflammation, stricture, ulceration, AV malformation, bleeding, none of those. Stool is yellow. Random biopsy done for abdominal pain. The patient has some skin tags, maybe mild external hemorrhoids, no internal hemorrhoid. Depending on the pathology of the biopsy and clinical indication, the patient would benefit from repeat colonoscopy in 10 years from today or if clinically indicated otherwise. SOFIA / KAYA /[id number]
--- NOTE | 2020-07-12 10:17 | PCM48HPAN ---
Post Anesthesia Note - EVALUATION WITHIN 48HRS OF ANESTHETIC Vital Signs in Normal Range: Yes Patient Participated in Evaluation: Yes Respiratory Function Stable: Yes Airway Patent: Yes Cardiovascular Function Stable: Yes Hydration Status Stable: Yes Pain Control Satisfactory: Yes Nausea and Vomiting Control Satisfactory: Yes Mental Status Recovered: Yes Vital Signs: Last Vital Signs Temp 36.5 C 07/12/20 09:13 Pulse 109 H 07/12/20 09:13 Resp 14 07/12/20 09:13 BP 128/74 07/12/20 09:13 Pulse Ox 99 07/12/20 09:13 - COMMENTS/OBSERVATIONS Free Text/Narrative:: No anesthesia problems
== END 2020-07-12 10:01 | disposition home or self-care (01) ==
LOC: MW.SDS 06:35
PROVIDERS: ATTEND Surgery
DX: A04.72 Enterocolitis due to Clostridium difficile, not specified as recurrent (principal); K29.50 Unspecified chronic gastritis without bleeding; K21.9 Gastro-esophageal reflux disease without esophagitis; K64.4 Residual hemorrhoidal skin tags; Z88.1 Allergy status to other antibiotic agents; Z88.0 Allergy status to penicillin; Z88.8 Allergy status to other drugs, medicaments and biological substances; Z79.899 Other long term (current) drug therapy
CPT/HCPCS: 43239; 45380; 81025; 87635; 88305; 88312; J2250; J2704; J3490; J7120; U0002